=== PATIENT | male | born 2000 | race Caucasian/White ===

== ENCOUNTER 2022-01-12 17:01 | Emergency (ER) | payer SELFPAY ==
[~2022-01-12] VITALS: Ht 172.7 cm; Wt 73.5 kg
[2022-01-12 17:09] VITALS: BP 149/95
--- NOTE | 2022-01-12 17:35 | NUR ---
PROVIDED PATIENT W/ WATER AT BEDSIDE, PATIENT STATES IS UNABLE TO PROVIDE URINE SAMPLE AT THIS TIME.
[2022-01-12] MEDS ORDERED: LOTC TP (17:52)
[2022-01-12] MEDS ORDERED: MUPI2CRE22 TP (17:52)
--- NOTE | 2022-01-12 18:18 | NUR ---
PATIENT ATTEMPTING TO PROVIDE URINE SAMPLE AT THIS TIME.
--- NOTE | 2022-01-12 18:28 | NUR ---
ADOLFO GRACIA EVALUATING PATIENT AT BEDSIDE.
--- NOTE | 2022-01-12 18:45 | NUR ---
URINE SAMPLE COLLECTED AND WALKED TO LAB AT THIS TIME.
[2022-01-12 19:05] VITALS: BP 149/95
--- NOTE | 2022-01-12 19:05 | NUR ---
Patient discharged with v/s stable. Written and verbal after care instructions ABOUT BALANITIS given and explained. Patient alert, oriented and verbalized understanding of instructions. Ambulatory with steady gait. All questions addressed prior to discharge. ID band removed. Patient advised to follow up with PMD. Rx of LOTRIMIN AND MUPIROCIN given.
--- NOTE | 2022-01-12 19:06 | NUR ---
The patient's care was reviewed and supervised by Rachana Kumar RN.
== END 2022-01-12 19:06 | disposition home or self-care (01) ==
LOC: MED 17:01
DX: N47.6 Balanoposthitis (principal); Z79.899 Other long term (current) drug therapy; Z79.2 Long term (current) use of antibiotics
CPT/HCPCS: 36415; 81002; 87491; 99283